=== PATIENT | female | born 1980 | race Caucasian/White ===

== ENCOUNTER 2016-09-26 05:46 | Emergency (ER) | payer BC ==
[~2016-09-26] VITALS: Ht 162.6 cm; Wt 68.7 kg
--- NOTE | 2016-09-26 06:03 | NUR ---
SAYS THINKS SHE CAME IN D/T IT AFFECTING HER NERVES, HARD TO GRASP THINGS AT TIMES, NUMBNESS AND TINGLING OFF AND ON AND DOES MAKE HER ANXIOUS
--- NOTE | 2016-09-26 06:43 | NUR ---
REPORT TO JAMAR AND SHE ACCEPTED CARE OF PT.
[2016-09-26] MEDS ORDERED: SODIUM CHLORIDE FLUSH 10 ML SYR IV PRN (06:45)
[2016-09-26] MEDS ORDERED: ONDANSETRON 2 MG/ML (Z0FRAN) 2 ML VIAL IV ONE (06:45)
[2016-09-26] MEDS ORDERED: KETOROLAC 30 MG/ML (TORADOL) 1 ML VIAL IV ONE (06:45)
[2016-09-26] MEDS ORDERED: SODIUM CHLORIDE FLUSH 3 ML SYR IV PRN (06:45)
[2016-09-26 07:03] LABS: BASOPHILS % (AUTO) 0 % (0-2); EOSINOPHILS # (AUTO) 0.1 10^3uL; EOSINOPHILS % (AUTO) 1 % (0-4); LYMPHOCYTES # (AUTO) 1.3 X10^3; MEAN CORPUSCULAR HEMOGLOBIN 29.5 PG (26.0-34.0); MEAN CORPUSCULAR HGB CONC 34.3 g/dL (31.0-37.0); MEAN CORPUSCULAR VOLUME 86 FL (80-100); MEAN PLATELET VOLUME 10.3 FL (6.0-9.5); MONOCYTES # (AUTO) 0.9 X10^3; MONOCYTES % (AUTO) 9 % (3-11); NEUTROPHILS # (AUTO) 8.3 X10^3; NEUTROPHILS % (AUTO) 78 % (51-67); PLATELET COUNT 257 10^3uL (150-450); WHITE BLOOD COUNT 10.67 10^3uL (4.0-11.0)
[2016-09-26 07:19] LABS: ALBUMIN 4.6 g/dL (3.4-5.0); ANION GAP 14.6 MEQ/L (3-15); CALCULATED IONIZED CALCIUM 3.9 mg/dL (3.8-4.6); TOTAL PROTEIN 7.5 g/dL (6.4-8.5)
--- NOTE | 2016-09-26 07:47 | NUR ---
Patient denies need to void at this time. States pain is better but she feels dizzy. Doctor notified.
--- NOTE | 2016-09-26 08:05 | NUR ---
Temp rechecked by this nurse - 99.[address] Barton at bedside to see results.
[2016-09-26 08:32] LABS: BILIRUBIN,URINE Negative (Negative); CLARITY,URINE Cloudy; COLOR,URINE Yellow; GLUCOSE, URINE (UA) Negative (Negative); LEUKOCYTE ESTERASE ,URINE 1+ (Negative); UROBILINOGEN,URINE 0.2 mg/dL (0.2-1.0)
[2016-09-26 08:36] LABS: URINE CENTRIFUGED VOLUME 12 mL
[2016-09-26] MEDS ORDERED: CIPROFLOXACIN (CIPRO) 500 MG TABLET PO ONE (08:55)
[2016-09-26 09:36] VITALS: BP 117/68
== END 2016-09-26 09:06 | disposition home or self-care (01) ==
LOC: ED 05:51
DX: N10 Acute pyelonephritis (principal); N39.0 Urinary tract infection, site not specified
CPT/HCPCS: 36415; 80053; 81003; 81015; 85025; 86140; 87088; 96361; 96374; 96375; 99284; J1885; J2405; J7030; 87077; 87186; 99283